=== PATIENT | female | born 1965 | race Caucasian/White ===

== ENCOUNTER 2025-05-17 18:11 | Emergency (ER) | payer OTHER ==
[~2025-05-17] VITALS: Ht 154.9 cm; Wt 107.0 kg
[2025-05-17 18:40] VITALS: O2SAT 98
[2025-05-17] MEDS ORDERED: TETANUS, DIPHTHERIA, PERTUSSIS VAC/PF 0.5ML (>10YR OLD) IM ONE (19:00)
[2025-05-17] MEDS: TETANUS, DIPHTHERIA, PERTUSSIS VAC/PF 0.5ML (>10YR OLD) IM ONE (21:15)
[2025-05-17] MEDS: KETOROLAC 15MG/ML VIAL IM ONE (21:57)
[2025-05-17 22:00] VITALS: TEMP 36.7
[2025-05-17] MEDS ORDERED: NAPR-1176 MT (22:39)
[2025-05-17 23:07] VITALS: BP 155/71; PULSE 60; RESP 16; O2SAT 100
== END 2025-05-17 23:10 | disposition home or self-care (01) ==
LOC: ER 18:11
DX: S01.01XA Laceration without foreign body of scalp, initial encounter (principal); S09.90XA Unspecified injury of head, initial encounter; Z79.899 Other long term (current) drug therapy; Z90.710 Acquired absence of both cervix and uterus; Z79.1 Long term (current) use of non-steroidal anti-inflammatories (NSAID); W22.03XA Walked into furniture, initial encounter; Y93.89 Activity, other specified; Y92.89 Other specified places as the place of occurrence of the external cause; Y99.8 Other external cause status
CPT/HCPCS: 70450; 12001; 96372; 99285; J1885; Z7610 ×2; 90715

== ENCOUNTER 2025-05-27 12:00 | Emergency (ER) | payer OTHER ==
[~2025-05-27] VITALS: Ht 152.4 cm; Wt 104.0 kg
[~2025-05-27 12:00] MED LIST: NAPR-1176 MT
[2025-05-27 12:03] VITALS: O2SAT 99
[2025-05-27 12:11] VITALS: BP 125/68; PULSE 67; RESP 18; TEMP 36.7; O2SAT 100
== END 2025-05-27 14:03 | disposition home or self-care (01) ==
LOC: ER 12:00
DX: S01.01XD Laceration without foreign body of scalp, subsequent encounter (principal); Z90.710 Acquired absence of both cervix and uterus; Z79.1 Long term (current) use of non-steroidal anti-inflammatories (NSAID); X58.XXXD Exposure to other specified factors, subsequent encounter
CPT/HCPCS: 99281; Z7610